=== PATIENT | female | born 1970 | race American Indian/Alaskan Native ===

== ENCOUNTER 2021-06-03 14:58 | Emergency (ER) | payer OTHER ==
[2021-06-03] MEDS ORDERED: amLODIPine 5 MG TAB PO ONE (15:38)
[2021-06-03] MEDS ORDERED: cloNIDine 0.2 MG TAB PO ONE (15:38)
--- NOTE | 2021-06-03 15:43 | Emergency Department Report ---
ED Fall HPI - General Chief Complaint: High BP Stated Complaint: GLF Time Seen by Provider: 06/03/21 15:30 Source: patient Mode of arrival: Ambulatory - History of Present Illness Initial Comments: Chief complaint: "I fell. I have not been taking her blood pressure medicine. HPI: This is a 51-year-old female with history of hypertension, diabetes mellitus, asthma who presents with 3 months of knee pain since injury in February. She also has had chronic right thigh pain since 2007. Today she went to pharmacy to buy her naproxen for bilateral leg pain. She fell at the [facility]. She had difficulty getting up. In February after taking a misstep, she has had right knee pain slight instability. She is able to walk with pain. Since 2007, she has had right upper thigh pain unknown etiology. She had a scare with lisinopril. Since that time she has been noncompliant with amlodipine and clonidine. She is followed at [facility]. She does have her own health insurance. MD Complaint: fall -: Sudden, This afternoon Fall From: standing, other (While reaching for medication) When Fall Occurred: 1 hour [employer] Fall Witnessed: yes, by bystander Place Fall Occurred: other ([facility]) Loss of Consciousness: none Prolonged Down Time?: no Symptoms Prior to Fall: none Location - Extremities: Right: Knee (Right knee pain) Severity: moderate Context: tripped/slipped Associated Symptoms: denies - Related Data Previous Rx's Medication Instructions Recorded Last Taken Type amLODIPine 10 mg PO DAILY 90 Days #90 tab 06/03/21 Unknown Rx cloNIDine [Catapres] 0.2 mg PO BID 90 Days #180 tablet 06/03/21 Unknown Rx Allergies Allergy/AdvReac Type Severity Reaction Status Date / Time lisinopril Allergy Swelling Verified 06/03/21 15:16 ED Review of Systems ROS: Stated complaint: GLF Other details as noted in HPI Comment: All other systems reviewed and negative Constitutional: denies: chills, fever, malaise Respiratory: denies: cough, shortness of breath Cardiovascular: denies: chest pain, edema Gastrointestinal: denies: abdominal pain Musculoskeletal: arthralgia ED Past Medical Hx - Past Medical History Previous Medical History?: Yes Hx Hypertension: Yes Hx Diabetes: Yes Hx Asthma: Yes - Surgical History Past Surgical History?: No - Family History Family history: hypertension - Social History Smoking Status: Never Smoker Substance Use Type: Prescribed - Medications Home Medications: Home Medications Medication Instructions Recorded Confirmed Last Taken Type amLODIPine 10 mg PO DAILY 90 Days #90 tab 06/03/21 Unknown Rx cloNIDine [Catapres] 0.2 mg PO BID 90 Days #180 tablet 06/03/21 Unknown Rx ED Physical Exam - General Limitations: No Limitations General appearance: alert, in no apparent distress - Head Head exam: Present: atraumatic, normocephalic - Eye Eye exam: Present: normal appearance - ENT ENT exam: Present: mucous membranes moist - Neck Neck exam: Present: normal inspection, full ROM - Respiratory Respiratory exam: Present: normal lung sounds bilaterally. Absent: respiratory distress, wheezes, rales, rhonchi - Cardiovascular Cardiovascular Exam: Present: regular rate, normal rhythm, normal heart sounds. Absent: systolic murmur, diastolic murmur, rubs, gallop - GI/Abdominal GI/Abdominal exam: Present: soft, normal bowel sounds. Absent: distended, tenderness, guarding, rebound - Expanded Lower Extremity Exam Left Hip exam: Present: normal inspection, full ROM Upper Leg exam: Present: normal inspection, full ROM Knee exam: Present: full ROM, tenderness, swelling. Absent: abrasion Lower Leg exam: Present: normal inspection, full ROM Neuro vascular tendon exam: Present: no vascular compromise Right Hip exam: Present: normal inspection, full ROM. Absent: tenderness, swelling Upper Leg exam: Present: normal inspection, full ROM Knee exam: Present: normal inspection, full ROM. Absent: tenderness, swelling Lower Leg exam: Present: normal inspection, full ROM Ankle exam: Present: normal inspection, full ROM Foot/Toe exam: Present: normal inspection Neuro vascular tendon exam: Present: no vascular compromise - Back Exam Back exam: Present: normal inspection - Neurological Exam Neurological exam: Present: alert, oriented X3 - Psychiatric Psychiatric exam: Present: normal affect, normal mood - Skin Skin exam: Present: warm, dry, intact, normal color. Absent: rash ED Course Vital Signs 06/03/21 06/03/21 06/03/21 15:16 15:49 15:50 Temperature 98 F Pulse Rate 102 H 102 H 102 H Respiratory 24 Rate Blood Pressure 231/131 231/131 231/131 O2 Sat by Pulse 99 Oximetry ED Medical Decision Making - Medical Decision Making 1. Left knee injury: will need orthopedic evaluation 2. Hypertensive urgency due to noncompliance. I gave extensive verbal education. I informed her that amlodipine and clonidine are not associated with angioedema. I have given 90-day prescription for both amlodipine and clonidine. First doses provided in the emergency department. 3. Chronic right leg pain possibly referred pain from right hip or right knee. Patient's BMI is 42. Critical care attestation.: If time is entered above; I have spent that time in minutes in the direct care of this critically ill patient, excluding procedure time. ED Disposition Clinical Impression: Left knee injury, Hypertensive urgency Disposition: 01 HOME / SELF CARE / HOMELESS Is pt being admited?: No Does the pt Need Aspirin: No Condition: Stable Instructions: Knee Sprain, Adult, [id number], Hypertension, Adult, [id number], Managing Your Hypertension Prescriptions: amLODIPine 10 mg PO DAILY 90 Days #90 tab cloNIDine [Catapres] 0.2 mg PO BID 90 Days #180 tablet Referrals: GURINDER KOVACS MD [Staff Physician] - 3-5 Days
[2021-06-03] MEDS ORDERED: ACETAMINOPHEN 500 MG TAB PO ONE (15:48)
[2021-06-03] MEDS ORDERED: NAPROXEN 500 MG TAB PO ONE (15:48)
[2021-06-03 16:42] VITALS: BP 223/132
== END 2021-06-03 16:44 | disposition home or self-care (01) ==
LOC: ED 14:58
DX: S89.92XA Unspecified injury of left lower leg, initial encounter (principal); I16.0 Hypertensive urgency; Z88.8 Allergy status to other drugs, medicaments and biological substances; X58.XXXA Exposure to other specified factors, initial encounter; Y93.89 Activity, other specified; Y92.89 Other specified places as the place of occurrence of the external cause; Y99.8 Other external cause status
CPT/HCPCS: 82962; 99283